=== PATIENT | male | born 1970 | race Two or more races ===

== ENCOUNTER 2022-01-10 13:35 | Outpatient (CLI) | payer SELFPAY ==
[2022-01-10] MEDS ORDERED: SILVER SULFADIAZINE CREAM 25 GM TUBE ONE (14:34)
== END 2022-01-10 23:59 | disposition home or self-care (01) ==
LOC: WOU 13:35
PROVIDERS: ATTEND Surgery
DX: S51.812D Laceration without foreign body of left forearm, subsequent encounter (principal); S51.811D Laceration without foreign body of right forearm, subsequent encounter; S71.012D Laceration without foreign body, left hip, subsequent encounter; S81.011D Laceration without foreign body, right knee, subsequent encounter; S81.812D Laceration without foreign body, left lower leg, subsequent encounter; L03.119 Cellulitis of unspecified part of limb; V29.9XXD Motorcycle rider (driver) (passenger) injured in unspecified traffic accident, subsequent encounter
CPT/HCPCS: G0463